=== PATIENT | male | born 1980 | race Caucasian/White ===

== ENCOUNTER 2022-01-06 14:01 | Emergency (ER) | payer MEDICAID, SELFPAY ==
--- NOTE | 2022-01-06 16:06 | PC.NURSE ---
no answer at 1550, 1605
== END 2022-01-06 16:28 | disposition left against medical advice (07) ==
PROVIDERS: Emergency Provider Emergency Medicine
DX: Z04.1 Encounter for examination and observation following transport accident (principal)